=== PATIENT | male | born 1990 | race Caucasian/White ===

== ENCOUNTER 2022-09-29 19:58 | Emergency (ER) | payer OTHER ==
[~2022-09-29] VITALS: Ht 172.7 cm; Wt 79.4 kg
[2022-09-29] MEDS ORDERED: MEDROLPACK PO (22:16)
== END 2022-09-29 23:09 | disposition home or self-care (01) ==
LOC: ER 19:58
DX: T78.40XA Allergy, unspecified, initial encounter (principal)